=== PATIENT | female | born 1970 | race American Indian/Alaskan Native ===

== ENCOUNTER 2016-10-06 00:51 | Emergency (ER) | payer MEDICAID ==
[2016-10-06 02:32] VITALS: BP 161/105
[2016-10-06] MEDS ORDERED: NACL 0.9% 500 ML 500 ML IV ONE (02:42)
[2016-10-06 04:07] LABS: Basophils % (Auto) 1.3 % (0.0-1.8); Mean Corpuscular HGB Conc 30 % (30-34); Platelet Count 254 K/mm3 (140-440); Red Blood Count 5.31 M/mm3 (3.65-5.03); Red Cell Distribution Width 19.8 % (13.2-15.2); White Blood Count 6.9 K/mm3 (4.5-11.0)
[2016-10-06 04:11] LABS: Hematocrit 33.6 % (30.3-42.9); Mean Corpuscular Hemoglobin 19 pg (28-32); Mean Corpuscular Volume 63 fl (79-97)
[2016-10-06 04:17] LABS: INR 2.95 (0.87-1.13); Partial Thromboplastin Time 48.5 Sec. (24.2-36.6)
[2016-10-06 04:23] LABS: Alanine Aminotransferase 9 units/L (7-56); Albumin 3.9 g/dL (3.9-5); Alkaline Phosphatase 89 units/L (35-129); Anion Gap 16 mmol/L; Bilirubin,Total < 0.20 mg/dL (0.1-1.2); Blood Urea Nitrogen 7 mg/dL (7-17); Calcium 8.2 mg/dL (8.4-10.2); Carbon Dioxide 25 mmol/L (22-30); Chloride 100.6 mmol/L (98-107); Glucose 100 mg/dL (65-100); Potassium 4.1 mmol/L (3.6-5.0); Sodium 137 mmol/L (137-145); Total Protein 7.9 g/dL (6.3-8.2)
[2016-10-06] MEDS ORDERED: DUONEB *Not for PRN Use IH ONE ×2 (04:24→06:56)
--- NOTE | 2016-10-06 07:23 | XRay Report ---
AP CHEST: HISTORY: Sepsis Compared to 07/29/16. AP view of the chest demonstrates a normal mediastinal and cardiac contour with clear lungs and normal bony and soft tissue structures. IMPRESSION: Unremarkable AP chest.
== END 2016-10-06 04:41 | disposition left against medical advice (07) ==
LOC: ED 00:51
DX: R06.00 Dyspnea, unspecified (principal); Z53.21 Procedure and treatment not carried out due to patient leaving prior to being seen by health care provider
CPT/HCPCS: 36415; 71010; 80053; 80156; 80184; 82140; 82805; 84484; 85025; 85610; 85730; 87040; 93005; 93010; 94640

== ENCOUNTER 2018-06-15 12:25 | Emergency (ER) | payer MEDICAID ==
[2018-06-15] MEDS ORDERED: ZOFRAN IV ONE (12:49)
[2018-06-15] MEDS ORDERED: FIORICET PO ONE (12:49)
--- NOTE | 2018-06-15 13:05 | Emergency Department Report ---
HPI - General Chief Complaint: Seizure Time Seen by Provider: 06/15/18 12:40 - HPI HPI: Room 21 The patient is a 48-year-old female presenting with chief complaint of seizure. The patient was a her neurologist office when she had a witnessed generalized tonic-clonic seizure lasted approximately 2 minutes. Patient remembers awakening with EMS. Patient now complains of nausea dizziness and a headache. The patient states she's been without her phenobarbital and Tegretol for the past 3-4 days in addition to her antihypertensive medication. Location: [facility] Duration: 2 minutes Quality: [See above] Severity: Moderate Modifying factors: [see above] Context: [see above] Mode of transportation: [not driving] ED Past Medical Hx - Past Medical History Previous Medical History?: Yes Hx Hypertension: Yes Hx CVA: Yes (pt denies, chart stated had CVA in ) Hx Heart Attack/AMI: Yes (per pt) Hx Pulmonary Embolism: Yes Hx Seizures: Yes (grand and petite mal seizures) Hx COPD: Yes Additional medical history: PE (takes Eliquis, used to take Coumadin) - Surgical History Past Surgical History?: No - Family History Family history: no significant - Social History Smoking Status: Former Smoker (none times months) Substance Use Type: None (denies illicit drug use) - Medications Home Medications: Home Medications Medication Instructions Recorded Confirmed Last Taken Type Lisinopril/Hydrochlorothiazide 1 tab PO QDAY #30 tablet 01/16/13 07/29/16 Unknown Rx [Zestoretic 20-12.5 mg] PHENobarbital 30 mg PO QDAY #30 tablet 01/16/13 07/29/16 Unknown Rx carBAMazepine [TEGretol] 100 mg PO Q8H #30 tab.chew 01/16/13 07/29/16 Unknown Rx Warfarin [Coumadin] 15 mg PO QDAY 12/03/15 07/29/16 Unknown History ALPRAZolam [Xanax TAB] 0.5 mg PO Q12HR #10 tablet 08/02/16 Unknown Rx Albuterol Sulfate [Albuterol 0.63% 0.63 mg IH QID PRN #30 ml 08/02/16 Unknown Rx NEBS] Azithromycin [Zithromax TAB] 500 mg PO QDAY #7 tablet 08/02/16 Unknown Rx Fluticasone/Salmeterol [Advair 1 puff IH BID #30 blst.w.dev 08/02/16 Unknown Rx Diskus 100-50 mcg] Ipratropium/Albuterol Sulfate 1 ampul IH Q8HR #30 ampul.neb 08/02/16 Unknown Rx [Duoneb 0.5 mg-3 mg/3 ml Soln] guaiFENesin ER [Mucinex ER] 600 mg PO BID #14 tablet 08/02/16 Unknown Rx predniSONE [Deltasone] 10 mg PO .TAPER #48 tab 08/02/16 Unknown Rx PHENobarbital [Phenobarbital] 100 mg PO QDAY #90 tablet 06/15/18 Unknown Rx Prednisone [predniSONE 10 mg 10 mg PO .TAPER #1 tab.ds.pk 06/15/18 Unknown Rx (6-Day Pack, 21 Tabs)] carBAMazepine [TEGretol] 100 mg PO Q12H #90 tab.chew 06/15/18 Unknown Rx ED Review of Systems ROS: Stated complaint: HYPERTENSION Other details as noted in HPI Constitutional: no symptoms reported Eyes: denies: eye pain ENT: denies: throat pain Respiratory: no symptoms reported Cardiovascular: denies: chest pain Endocrine: no symptoms reported Gastrointestinal: nausea, vomiting Genitourinary: denies: dysuria Musculoskeletal: denies: back pain Neurological: headache, other (seizure) Physical Exam - Physical Exam Vital Signs: Vital Signs 06/15/18 06/15/18 06/15/18 12:47 12:57 12:58 Temperature 98.4 F Pulse Rate 96 H 90 Respiratory 20 24 24 Rate Blood Pressure 148/76 143/81 [Left] Blood Pressure 146/71 [Right] O2 Sat by Pulse 96 95 95 Oximetry Physical Exam: GENERAL: The patient is well-developed well-nourished female lying on stretcher not appearing to be in acute distress. [] HEENT: Normocephalic. Atraumatic. Extraocular motions are intact. Patient has moist mucous membranes. NECK: Supple. No meningitic signs are noted. Trachea midline CHEST/LUNGS: Clear to auscultation. There is no respiratory distress noted. HEART/CARDIOVASCULAR: Regular. There is no tachycardia. There is no gallop rub or murmur. ABDOMEN: Abdomen is soft, nontender. Patient has normal bowel sounds. There is no abdominal distention. SKIN: There is no rash. There is no edema. There is no diaphoresis. NEURO: The patient is awake, alert, and oriented. The patient is cooperative. The patient has no focal neurologic deficits. The patient has normal speech. Cranial nerves II through XII grossly intact, no drift MUSCULOSKELETAL: There is no evidence of acute injury. ED Course Vital Signs 06/15/18 06/15/18 06/15/18 12:47 12:57 12:58 Temperature 98.4 F Pulse Rate 96 H 90 Respiratory 20 24 24 Rate Blood Pressure 148/76 143/81 [Left] Blood Pressure 146/71 [Right] O2 Sat by Pulse 96 95 95 Oximetry ED Medical Decision Making - Lab Data Result diagrams: 06/15/18 12:54 06/15/18 12:54 Laboratory Tests 06/15/18 06/15/18 06/15/18 12:54 12:54 12:54 WBC 6.3 RBC 4.85 Hgb 10.7 Hct 34.9 MCV 72 L MCH 22 L MCHC 31 RDW 19.3 H Plt Count 226 PT INR APTT Sodium 135 L Potassium 4.1 Chloride 92.7 L Carbon Dioxide 27 Anion Gap 19 BUN 6 L Creatinine 0.9 Estimated GFR > 60 BUN/Creatinine Ratio 7 Glucose 138 H Calcium 8.4 Magnesium Carbamazepine Phenobarbital 19.8 06/15/18 06/15/18 06/15/18 12:54 12:54 12:54 WBC RBC Hgb Hct MCV MCH MCHC RDW Plt Count PT 13.3 INR 0.95 APTT 24.4 Sodium Potassium Chloride Carbon Dioxide Anion Gap BUN Creatinine Estimated GFR BUN/Creatinine Ratio Glucose Calcium Magnesium 1.90 Carbamazepine 2.0 L Phenobarbital - Radiology Data Radiology results: report reviewed (CT head), image reviewed (CT head) [facility] [address] [place] [address] Cat Scan Report Signed Patient: JOSE CARMONA MR#: [id number] : 1970 Acct:[id number] Age/Sex: 48 / F ADM Date: 06/15/18 Loc: ED Attending Dr: Ordering Physician: MARY BRAGG MD Date of Service: 06/15/18 Procedure(s): CT head/brain wo con Accession Number(s): [id number] cc: MARY BRAGG MD CT HEAD WITHOUT CONTRAST: HISTORY: Headache, seizure. TECHNIQUE: Sequential 2.5mm CT images. COMPARISON: 09/04/12. FINDINGS: Cerebral Parenchyma: Within normal limits. Cerebellum: A 1.5 cm hypodensity has developed in the superior left cerebellum since the previous exam. This has the appearance of a chronic focal infarct. The remainder the cerebellum is within normal limits. Brainstem: Within normal limits. Ventricles: Normal. Sella: Normal. Extra-axial spaces: Normal. Basal Cisterns: Normal. Intracranial Hemorrhage: None. Midline Shift: None. Calvarium: Normal. Sinuses: Normal. Mastoid Air Cells: Normal. Visualized Orbits: Normal. IMPRESSION: No acute intracranial process is identified. 1.5 cm chronic focal infarct in the superior left cerebellum which is new since 09/04/12. Transcribed By: TTR Dictated By: LORIN HALL JR, MD Electronically Authenticated By: LORNI HALL JR, MD Signed Date/Time: 06/15/181439 DD/ 143 TD/TT: 06/15/18 1440 - Differential Diagnosis seizure, closed head injury Critical care attestation.: If time is entered above; I have spent that time in minutes in the direct care of this critically ill patient, excluding procedure time. ED Disposition Clinical Impression: Seizure Disposition: DC-01 TO HOME OR SELFCARE Is pt being admited?: No Does the pt Need Aspirin: No Condition: Stable Instructions: Women and Epilepsy (ED), Epilepsy (ED) Additional Instructions: Return to the emergency department immediately should you develop worsening symptoms, fever, inability to tolerate food or liquid or any other concerns. Prescriptions: PHENobarbital [Phenobarbital] 100 mg PO QDAY #90 tablet Prednisone [predniSONE 10 mg (6-Day Pack, 21 Tabs)] 10 mg PO .TAPER #1 tab.ds.pk carBAMazepine [TEGretol] 100 mg PO Q12H #90 tab.chew Referrals: GUERLINE SAAVEDRA MD [Staff Physician] - 3-5 Days Time of Disposition: 15:08
[2018-06-15 13:16] LABS: INR 0.95 (0.87-1.13)
[2018-06-15 13:17] LABS: Partial Thromboplastin Time 24.4 Sec. (24.2-36.6)
[2018-06-15 13:18] LABS: BUN/Creatinine Ratio 7; Blood Urea Nitrogen 6 mg/dL (7-17); Calcium 8.4 mg/dL (8.4-10.2); Hemolysis Index 38
[2018-06-15 13:34] LABS: Hematocrit 34.9 % (30.3-42.9); Hemoglobin 10.7 gm/dl (10.1-14.3); Mean Corpuscular HGB Conc 31 % (30-34); Mean Corpuscular Volume 72 fl (79-97); Platelet Count 226 K/mm3 (140-440); Red Blood Count 4.85 M/mm3 (3.65-5.03); Red Cell Distribution Width 19.3 % (13.2-15.2)
--- NOTE | 2018-06-15 14:45 | Cat Scan Report ---
CT HEAD WITHOUT CONTRAST: HISTORY: Headache, seizure. TECHNIQUE: Sequential 2.5mm CT images. COMPARISON: 09/04/12. FINDINGS: Cerebral Parenchyma: Within normal limits. Cerebellum: A 1.5 cm hypodensity has developed in the superior left cerebellum since the previous exam. This has the appearance of a chronic focal infarct. The remainder the cerebellum is within normal limits. Brainstem: Within normal limits. Ventricles: Normal. Sella: Normal. Extra-axial spaces: Normal. Basal Cisterns: Normal. Intracranial Hemorrhage: None. Midline Shift: None. Calvarium: Normal. Sinuses: Normal. Mastoid Air Cells: Normal. Visualized Orbits: Normal. IMPRESSION: No acute intracranial process is identified. 1.5 cm chronic focal infarct in the superior left cerebellum which is new since 09/04/12.
[2018-06-15 14:46] VITALS: BP 128/65
== END 2018-06-15 15:35 | disposition home or self-care (01) ==
LOC: ED 12:25
DX: G40.909 Epilepsy, unspecified, not intractable, without status epilepticus (principal); I10 Essential (primary) hypertension; I25.2 Old myocardial infarction; J44.9 Chronic obstructive pulmonary disease, unspecified; Z86.73 Personal history of transient ischemic attack (TIA), and cerebral infarction without residual deficits; Z87.891 Personal history of nicotine dependence; Z79.01 Long term (current) use of anticoagulants; Z88.8 Allergy status to other drugs, medicaments and biological substances
CPT/HCPCS: 36415; 70450; 80048; 80156; 80184; 82962; 83735; 85027; 85610; 85730; 96374; 99285; J2405

== ENCOUNTER 2019-01-10 00:30 | Emergency (ER) | payer MEDICAID ==
--- NOTE | 2019-01-10 00:41 | Emergency Department Report ---
HPI - General Time Seen by Provider: 01/10/19 00:34 - HPI HPI: 48-year-old female presents to the emergency department via EMS from home with complaint of a few days of progressively worsening shortness of breath, productive cough with coughing fits. She has a past medical history of COPD on 4 L of oxygen via nasal cannula, bronchitis, seizures, hypertension. She is a former smoker and denies any illicit drug use. She received 5 mg of albuterol, 125 mg of Solu-Medrol and 2 g of magnesium in route with EMS. She has been using some Mucinex and an albuterol inhaler at home without much relief. The patient was recently diagnosed and treated for pneumonia and just finished a seven-day course of antibiotics. Her primary care physician is a Dr. Salas. No recent travel or sick contacts at home. She denies any fever, chest pain, lower extremity edema. ED Past Medical Hx - Past Medical History Hx Hypertension: Yes Hx CVA: Yes (pt denies, chart stated had CVA in ) Hx Heart Attack/AMI: Yes (per pt) Hx Pulmonary Embolism: Yes Hx Seizures: Yes (grand and petite mal seizures) Hx COPD: Yes Additional medical history: PE (takes Eliquis, used to take Coumadin) - Social History Smoking Status: Former Smoker (none times months) Substance Use Type: None (denies illicit drug use) - Medications Home Medications: Home Medications Medication Instructions Recorded Confirmed Last Taken Type Lisinopril/Hydrochlorothiazide 1 tab PO QDAY #30 tablet 01/16/13 07/29/16 Unknown Rx [Zestoretic 20-12.5 mg] PHENobarbitaL [PHENobarbital] 30 mg PO QDAY #30 tablet 01/16/13 07/29/16 Unknown Rx carBAMazepine [TEGretol] 100 mg PO Q8H #30 tab.chew 01/16/13 07/29/16 Unknown Rx Warfarin [Coumadin] 15 mg PO QDAY 12/03/15 07/29/16 Unknown History ALPRAZolam [Xanax TAB] 0.5 mg PO Q12HR #10 tablet 08/02/16 Unknown Rx Azithromycin [Zithromax TAB] 500 mg PO QDAY #7 tablet 08/02/16 Unknown Rx Fluticasone/Salmeterol [Advair 1 puff IH BID #30 blst.w.dev 08/02/16 Unknown Rx Diskus 100-50 mcg] Ipratropium/Albuterol Sulfate 1 ampul IH Q8HR #30 ampul.neb 08/02/16 Unknown Rx [Duoneb 0.5 mg-3 mg/3 ml Soln] guaiFENesin ER [Mucinex ER] 600 mg PO BID #14 tablet 08/02/16 Unknown Rx predniSONE [Deltasone] 10 mg PO .TAPER #48 tab 08/02/16 Unknown Rx PHENobarbitaL [Phenobarbital] 100 mg PO QDAY #90 tablet 06/15/18 Unknown Rx carBAMazepine [TEGretol] 100 mg PO Q12H #90 tab.chew 06/15/18 Unknown Rx ALBUTEROL Inhaler (OR & NICU) 2 puff IH QID PRN #1 inh 01/10/19 Unknown Rx [ProAir HFA Inhaler] Albuterol Sulfate [Albuterol 0.63% 0.63 mg IH QID PRN #1 box 01/10/19 Unknown Rx NEBS] Lisinopril/Hydrochlorothiazide 1 tab PO QDAY #30 tab 01/10/19 Unknown Rx [Zestoretic 20-25 mg] guaiFENesin/CODEINE [Robitussin AC] 5 ml PO Q6H PRN #100 ml 01/10/19 Unknown Rx predniSONE [Deltasone] 20 mg PO QDAY #4 tab 01/10/19 Unknown Rx ED Review of Systems ROS: Stated complaint: ABHAY Other details as noted in HPI Comment: All other systems reviewed and negative Constitutional: denies: chills, fever Eyes: denies: eye pain, vision change ENT: denies: ear pain, throat pain Respiratory: cough, shortness of breath, wheezing Cardiovascular: denies: chest pain, palpitations Gastrointestinal: denies: abdominal pain, vomiting Genitourinary: denies: dysuria, discharge Musculoskeletal: denies: back pain, arthralgia Skin: denies: rash, lesions Neurological: denies: headache, weakness Physical Exam - Physical Exam Physical Exam: GENERAL: The patient is well-developed well-nourished. HENT: Normocephalic. Atraumatic. Patient has moist mucous membranes. EYES: Extraocular motions are intact. Pupils equal reactive to light bilaterally. NECK: Supple. Trachea is midline. CHEST/LUNGS: There is mild wheezing throughout the chest. Tachypnea but no accessory muscle use. A productive sounding cough is heard during examination. There is no respiratory distress noted. HEART/CARDIOVASCULAR: Regular. There is no tachycardia. There is no murmur. ABDOMEN: Abdomen is soft, nontender. Patient has normal bowel sounds. There is no abdominal distention. SKIN: Skin is warm and dry. NEURO: The patient is awake, alert, and oriented. The patient is cooperative. The patient has no focal neurologic deficits. Normal speech. MUSCULOSKELETAL: There is no tenderness or deformity. There is no evidence of acute injury. ED Medical Decision Making - Lab Data Result diagrams: 01/10/19 00:47 01/10/19 00:47 - EKG Data -: EKG Interpreted by Me EKG shows normal: sinus rhythm, axis, intervals, QRS complexes, ST-T waves Rate: normal - EKG Data When compared to previous EKG there are: previous EKG unavailable Interpretation: normal EKG - Radiology Data Radiology results: image reviewed interpreted by me: Chest x-ray does not show any acute process. There are no pleural effusions, obvious pneumonia and there is no pneumothorax. - Medical Decision Making This patient presents to the emergency department with some shortness of breath and a productive cough that occurs with coughing fits. On examination she has some mild wheezing throughout the chest, some tachypnea without accessory muscle use and a productive cough heard. She does not appear to be in any respiratory distress. A chest x-ray was done that does not show any pleural effusions, pneumonia, pneumothorax, focal consolidation, or any other acute process. Patient's labs are mostly unremarkable including CBC, metabolic panel, troponin and BNP. EKG did not show any signs of ST elevation [place] or dysrhythmia. Patient was given some Solu-Medrol and magnesium in route. She was given antitussive medication here and another round of breathing treatments. Upon reevaluation she says she is feeling greatly improved. We tested the patient inability arou nd the emergency department and she did not have any significant hypoxia and says that she feels better than she usually does when she has a COPD exacerbation. She is asking for discharge home and we will attempt this. 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 She has been given a refill of her albuterol inhaler and nebulizer treatments, Robitussin-AC for her cough, a course of steroids, and a refill of her blood pressure medication. She will return to the emergency Department with any worsening of her symptoms or any acute distress. - Differential Diagnosis COPD, bronchitis, pneumonia, CHF Critical Care Time: No Critical care attestation.: If time is entered above; I have spent that time in minutes in the direct care of this critically ill patient, excluding procedure time. ED Disposition Clinical Impression: COPD exacerbation, Bronchitis Disposition: TO HOME OR SELFCARE Is pt being admited?: No Condition: Stable Instructions: Acute Bronchitis (ED), Chronic Obstructive Pulmonary Disease (ED) Additional Instructions: Please follow-up with your primary care physician in the next few days. Return to the emergency Department with any worsening of your symptoms or any acute distress. You have been prescribed a medication that is sedating and therefore should not be taken prior to driving, working, and responsible for children and in no way should be mixed with alcohol of any quantity. Prescriptions: Albuterol Sulfate [Albuterol 0.63% NEBS] 0.63 mg IH QID PRN #1 box PRN Reason: Shortness Of Breath predniSONE [Deltasone] 20 mg PO QDAY #4 tab ALBUTEROL Inhaler (OR & NICU) [ProAir HFA Inhaler] 2 puff IH QID PRN #1 inh PRN Reason: Shortness Of Breath guaiFENesin/CODEINE [Robitussin AC] 5 ml PO Q6H PRN #100 ml PRN Reason: Cough Lisinopril/Hydrochlorothiazide [Zestoretic 20-25 mg] 1 tab PO QDAY #30 tab Referrals: PRIMARY CARE, [Primary Care Provider] - 2-3 Days Time of Disposition: 03:08
[2019-01-10] MEDS ORDERED: guaiFENesin/CODEINE 100-10MG ORAL LIQD 5 ML PO ONE (01:00)
[2019-01-10] MEDS ORDERED: BENZONATATE 100 MG CAP PO ONE (01:01)
[2019-01-10] MEDS ORDERED: ALBUTEROL 2.5 MG/3 ML NEBU IH ONE (01:01)
--- NOTE | 2019-01-10 01:09 | XRay Report ---
CHEST 1 VIEW, 01/10/2019 12:39 AM CLINICAL INFORMATION/INDICATION: Shortness of breath COMPARISON: Chest radiograph, 10/06/2016 FINDINGS: SUPPORT DEVICES: None. HEART: Cardiac silhouette is normal in size. LUNGS/PLEURA: There is no focal airspace disease or significant pleural effusion. ADDITIONAL FINDINGS: No additional acute findings. IMPRESSION: 1. No evidence of acute cardiopulmonary process. Signer Name: Ifrah Flower MD Signed: 01/10/2019 1:05 AM Workstation Name: [id number]
[2019-01-10 02:18] LABS: INR 0.91 (0.87-1.13)
[2019-01-10 02:24] LABS: Basophils % (Auto) 0.6 % (0.0-1.8); Eosinophils % (Auto) 0.3 % (0.0-4.3); Hemoglobin 11.2 gm/dl (10.1-14.3); Lymphocytes # (Auto) 1.7 K/mm3 (1.2-5.4); Lymphocytes % (Auto) 32.5 % (13.4-35.0); Mean Corpuscular HGB Conc 32 % (30-34); Mean Corpuscular Volume 80 fl (79-97); Monocytes # (Auto) 0.5 K/mm3 (0.0-0.8); Monocytes % (Auto) 8.9 % (0.0-7.3); Platelet Count 290 K/mm3 (140-440); Red Blood Count 4.39 M/mm3 (3.65-5.03); Red Cell Distribution Width 17.4 % (13.2-15.2)
[2019-01-10 02:33] LABS: BUN/Creatinine Ratio 14; Blood Urea Nitrogen 11 mg/dL (7-17); Calcium 8.9 mg/dL (8.4-10.2); Hemolysis Index 4
[2019-01-10 03:12] VITALS: BP 115/70
== END 2019-01-10 04:17 | disposition home or self-care (01) ==
LOC: ED 00:30
DX: J44.1 Chronic obstructive pulmonary disease with (acute) exacerbation (principal); J40 Bronchitis, not specified as acute or chronic; I10 Essential (primary) hypertension; Z86.73 Personal history of transient ischemic attack (TIA), and cerebral infarction without residual deficits; Z86.711 Personal history of pulmonary embolism; Z87.891 Personal history of nicotine dependence; Z79.899 Other long term (current) drug therapy; Z88.8 Allergy status to other drugs, medicaments and biological substances
CPT/HCPCS: 36415; 71045; 80048; 83880; 84484; 85025; 85610; 93005; 93010; 94640; 94644